=== PATIENT | male | born 1965 | race Caucasian/White ===

== ENCOUNTER 2023-03-20 14:37 | Emergency (ER) | payer MEDICARE, MEDICAID ==
[~2023-03-20] VITALS: Ht 182.9 cm; Wt 84.0 kg
[2023-03-20 14:40] VITALS: BP 148/97; PULSE 104; TEMP 98.8; O2SAT 97
[2023-03-20] MEDS ORDERED: ketorolac tromethamine 15mg/ml inj. IM ONE (17:25)
[2023-03-20 17:38] VITALS: RESP 16
== END 2023-03-20 17:44 | disposition home or self-care (01) ==
LOC: ER 14:38
DX: M25.562 Pain in left knee (principal)
CPT/HCPCS: 73564; 96372; 99284; J1885